=== PATIENT | male | born 1960 | race African-American/Black ===

== ENCOUNTER 2018-10-01 10:03 | Inpatient (IN) | payer MEDICAID ==
[~2018-10-01] VITALS: Ht 177.8 cm; Wt 149.7 kg
[2018-10-01 13:10] LABS: BASOPHILS % 0.3 % (0.0-2.0); EOSINOPHILS % 1.6 % (0.0-5.0); HEMATOCRIT. 41.8 % (42.0-52.0); HEMOGLOBIN. 13.3 g/dL (14.0-18.0); MEAN CORPUSCULAR HEMOGLOBIN 26.2 pg (28.0-32.0); MEAN CORPUSCULAR VOLUME 82.1 fL (80.0-94.0); MEAN PLATELET VOLUME 9.3 fl (7.4-10.4); MONOCYTES % 8.3 % (2.0-8.0); NEUTROPHILS % 67.8 % (40.0-76.0); PLATELET 331 x1000/uL (130-400); RED BLOOD CELL COUNT 5.09 mill/uL (4.7-6.1)
[2018-10-01 13:12] LABS: CHLORIDE 106 mEq/L (98-107)
[2018-10-01] MEDS ORDERED: FUROSEMIDE 40MG/4ML VIAL IVP ONE (14:00)
[2018-10-01] MEDS ORDERED: DEXTROSE 50% WATER 50ML SYRINGE IV PRN (15:30)
[2018-10-01] MEDS: BLOOD SUGAR DIAGNOSTIC STRIP TEST SCH ×2 (15:54→21:22)
[2018-10-01] MEDS ORDERED: CEFTRIAXONE 1 G PREMIX 50 ML IV SCH (16:00)
[2018-10-01] MEDS ORDERED: FUROSEMIDE 40MG/4ML VIAL IVP SCH (17:00)
[2018-10-01] MEDS ORDERED: ACETAMINOPHEN 325MG TABLET PO PRN (18:00)
[2018-10-01] MEDS ORDERED: ONDANSETRON HCL 4MG/2ML INJ IV PRN (18:00)
[2018-10-01 20:00] VITALS: BP 155/84
[2018-10-01] MEDS ORDERED: METF-416 PO (21:08)
[2018-10-01] MEDS ORDERED: FURO20TA4 PO (21:08)
[2018-10-01] MEDS ORDERED: CLOP75TA4 PO (21:09)
[2018-10-01] MEDS ORDERED: METR500T PO (21:11)
[2018-10-01] MEDS ORDERED: BENA20TA77 PO (21:14)
[2018-10-01] MEDS ORDERED: AMLO10TA80 PO (21:15)
[2018-10-01] MEDS ORDERED: HYDR-4134 PO (21:16)
[2018-10-01] MEDS ORDERED: SITA100T11 PO (21:18)
[2018-10-01] MEDS: ATORVASTATIN CALCIUM 40MG TABLET PO SCH (21:30)
[2018-10-01] MEDS: ENOXAPARIN 40MG/0.4ML SYR SUBCUT SCH (21:31)
[2018-10-01] MEDS: INSULIN LISPRO 100 UNITS/ML SUBCUT SCH (21:32)
[2018-10-01] MEDS: INSULIN GLARGINE UD 100 UNITS/ML SYR SUBCUT SCH (21:33)
[2018-10-01 22:14] VITALS: BP 155/84
[2018-10-02] VITALS: BP 120/62
[2018-10-02 04:00] VITALS: BP 140/83
[2018-10-02] MEDS: BLOOD SUGAR DIAGNOSTIC STRIP TEST SCH ×4 (06:03→21:00)
[2018-10-02] MEDS: FUROSEMIDE 40MG/4ML VIAL IVP SCH ×2 (06:16→17:46)
[2018-10-02 06:31] LABS: BASOPHILS % 0.3 % (0.0-2.0); EOSINOPHILS % 0.6 % (0.0-5.0); HEMATOCRIT. 38.9 % (42.0-52.0); HEMOGLOBIN. 12.5 g/dL (14.0-18.0); LYMPHOCYTES % 18.4 % (20.0-50.0); MEAN CORPUSCULAR VOLUME 80.8 fL (80.0-94.0); MEAN PLATELET VOLUME 9.2 fl (7.4-10.4); MONOCYTES % 9.3 % (2.0-8.0); NEUTROPHILS % 71.4 % (40.0-76.0); PLATELET 302 x1000/uL (130-400); RED BLOOD CELL COUNT 4.81 mill/uL (4.7-6.1)
[2018-10-02 06:37] LABS: CHLORIDE 104 mEq/L (98-107)
[2018-10-02] MEDS: INSULIN LISPRO 100 UNITS/ML SUBCUT SCH ×4 (06:41→21:07)
[2018-10-02 07:50] VITALS: BP 116/61
[2018-10-02] MEDS ORDERED: PNEUMOCOCCAL 23-VAL P-SAC VAC 0.5 ML IM ONE (08:00)
[2018-10-02 08:03] LABS: CLARITY URINE CLEAR (CLEAR); COLOR URINE YELLOW (YELLOW); KETONES URINE NEGATIVE (NEGATIVE); LEUKOCYTE ESTERASE URINE 1+ (NEGATIVE); NITRITE URINE NEGATIVE (NEGATIVE); OCCULT BLOOD URINE NEGATIVE (NEGATIVE); PROTEIN URINE NEGATIVE (NEGATIVE); SPECIFIC GRAVITY URINE 1.019 (1.005-1.030); UROBILINOGEN URINE 0.2 E.U./dL (0.2-1.0)
[2018-10-02] MEDS ORDERED: ASPIRIN 81MG TABLET PO SCH (09:00)
[2018-10-02] MEDS: ENOXAPARIN 40MG/0.4ML SYR SUBCUT SCH ×2 (10:15→21:05)
[2018-10-02] MEDS: INSULIN GLARGINE UD 100 UNITS/ML SYR SUBCUT SCH ×2 (10:16→23:24)
[2018-10-02 12:00] VITALS: BP 135/88
[2018-10-02] MEDS ORDERED: CLONIDINE 0.1MG TABLET PO PRN (13:45)
[2018-10-02] MEDS ORDERED: CEFTRIAXONE 1 G PREMIX 50 ML IV SCH (14:00)
[2018-10-02] MEDS ORDERED: AMLODIPINE 2.5MG TABLET PO SCH (14:00)
[2018-10-02] MEDS ORDERED: REGADENOSON 0.4 MG/5 ML IV ONE (14:15)
[2018-10-02 14:36] LABS: *AMPHETAMINES SCREEN URINE NEGATIVE (NEGATIVE)
[2018-10-02 14:37] LABS: *BENZODIAZEPINES SCREEN URINE NEGATIVE (NEGATIVE); CANNABINOID URINE SCREEN NEGATIVE (NEGATIVE); METHADONE URINE SCREEN NEGATIVE (NEGATIVE); OPIATES URINE SCREEN NEGATIVE (NEGATIVE); PHENCYCLIDINE URINE SCREEN NEGATIVE (NEGATIVE)
[2018-10-02 14:40] LABS: *BARBITURATES SCREEN URINE NEGATIVE (NEGATIVE); *COCAINE SCREEN URINE NEGATIVE (NEGATIVE)
[2018-10-02] MEDS: HYDRALAZINE HCL 25MG TABLET PO SCH ×2 (14:59→21:05)
[2018-10-02] MEDS: CLOPIDOGREL 75MG TABLET PO SCH (14:59)
[2018-10-02 16:00] VITALS: BP 130/80
[2018-10-02 20:00] VITALS: BP 146/80
[2018-10-02] MEDS: ATORVASTATIN CALCIUM 40MG TABLET PO SCH (21:04)
[2018-10-02] MEDS: ASPIRIN 81MG TABLET PO SCH (21:04)
[2018-10-02] MEDS: AMLODIPINE 5MG TABLET PO SCH (21:05)
[2018-10-03] VITALS: BP 145/81
[2018-10-03 04:00] VITALS: BP 159/59
[2018-10-03] MEDS: BLOOD SUGAR DIAGNOSTIC STRIP TEST SCH ×3 (06:29→17:38)
[2018-10-03] MEDS: INSULIN LISPRO 100 UNITS/ML SUBCUT SCH ×3 (06:29→18:00)
[2018-10-03] MEDS: FUROSEMIDE 40MG/4ML VIAL IVP SCH ×2 (06:35→17:15)
[2018-10-03] MEDS: HYDRALAZINE HCL 25MG TABLET PO SCH ×2 (06:35→14:53)
[2018-10-03 07:40] LABS: BASOPHILS % 0.4 % (0.0-2.0); EOSINOPHILS % 1.2 % (0.0-5.0); HEMATOCRIT. 39.4 % (42.0-52.0); HEMOGLOBIN. 12.5 g/dL (14.0-18.0); LYMPHOCYTES % 18.4 % (20.0-50.0); MEAN CORPUSCULAR VOLUME 81.6 fL (80.0-94.0); MEAN PLATELET VOLUME 9.6 fl (7.4-10.4); MONOCYTES % 6.4 % (2.0-8.0); NEUTROPHILS % 73.6 % (40.0-76.0); PLATELET 267 x1000/uL (130-400); RED BLOOD CELL COUNT 4.83 mill/uL (4.7-6.1); RED CELL DISTRIBUTION WIDTH 15.5 % (11.6-14.6)
[2018-10-03 08:30] VITALS: BP 156/96
[2018-10-03] MEDS ORDERED: REGADENOSON 0.4 MG/5 ML IV ONE (09:16)
[2018-10-03 09:59] LABS: CHLORIDE 101 mEq/L (98-107)
[2018-10-03 10:10] LABS: LDL CHOLESTEROL 105 mg/dL (5-100)
[2018-10-03 10:11] LABS: CREATINE KINASE 173 IU/L (39-308); CREATINE KINASE MB FRACTION < 1.0 ng/mL (0.5-3.6)
[2018-10-03 10:14] LABS: HDL CHOLESTEROL 41 mg/dL (40-59)
[2018-10-03] MEDS: INSULIN GLARGINE UD 100 UNITS/ML SYR SUBCUT SCH (11:44)
[2018-10-03] MEDS: ENOXAPARIN 40MG/0.4ML SYR SUBCUT SCH (11:45)
[2018-10-03] MEDS: CLOPIDOGREL 75MG TABLET PO SCH (11:45)
[2018-10-03] MEDS: AMLODIPINE 5MG TABLET PO SCH (11:46)
[2018-10-03] MEDS: ASPIRIN 81MG TABLET PO SCH (11:46)
[2018-10-03 12:00] VITALS: BP 141/87
[2018-10-03] MEDS ORDERED: LOSARTAN POTASSIUM 25 MG TABLET PO SCH (12:00)
[2018-10-03] MEDS ORDERED: HYDR-4134 PO (14:44)
[2018-10-03] MEDS ORDERED: ASPI-1160 PO (14:44)
[2018-10-03] MEDS ORDERED: LOSA25TA3 PO (14:44)
[2018-10-03] MEDS ORDERED: AMLO5TAB88 PO (14:44)
[2018-10-03] MEDS ORDERED: LIP40 PO (14:44)
[2018-10-03 16:00] VITALS: BP 142/80
[2018-10-03] MEDS ORDERED: CEFTRIAXONE 1 G PREMIX 50 ML IV SCH (16:00)
[2018-10-03 18:16] VITALS: BP 142/80
== END 2018-10-03 21:03 | disposition home or self-care (01) | DRG 861 ==
LOC: ER 11:25 → 5WST 14:21 → EDBEDREQ 14:23 → ENRESERV 17:18
PROVIDERS: ADMIT Internal Medicine; ATTEND Internal Medicine
DX: R60.0 Localized edema (principal); I11.0 Hypertensive heart disease with heart failure; E66.01 Morbid (severe) obesity due to excess calories; I50.40 Unspecified combined systolic (congestive) and diastolic (congestive) heart failure; E11.9 Type 2 diabetes mellitus without complications; E78.5 Hyperlipidemia, unspecified; D72.829 Elevated white blood cell count, unspecified; F17.210 Nicotine dependence, cigarettes, uncomplicated; I25.10 Atherosclerotic heart disease of native coronary artery without angina pectoris; Z95.5 Presence of coronary angioplasty implant and graft; Z91.19 Patient's noncompliance with other medical treatment and regimen; Z79.4 Long term (current) use of insulin; Z71.3 Dietary counseling and surveillance; Z79.84 Long term (current) use of oral hypoglycemic drugs; Z79.899 Other long term (current) drug therapy; I25.2 Old myocardial infarction; Z71.6 Tobacco abuse counseling; Z68.42 Body mass index [BMI] 45.0-49.9, adult
CPT/HCPCS: 36415; 71045; 78452; 80048; 80061; 80305; 81003; 82550; 82553; 82962; 83735; 83880; 84145; 84443; 84484; 85379; 90732; 93005; 93017; 93306; 93970; 96365; 96375; 99285; A9500; J0696; J1650; J1815; J1940; J2785; J7040

== ENCOUNTER 2019-07-01 10:45 | Inpatient (IN) | payer MEDICAID ==
[~2019-07-01] VITALS: Ht 180.3 cm; Wt 140.6 kg
[~2019-07-01 10:45] MED LIST: AMLO5TAB88 PO; ASPI-1160 PO; CLOP75TA4 PO; FURO20TA4 PO; HYDR-4134 PO; LIP40 PO; LOSA25TA3 PO; METF-416 PO; SITA100T11 PO
[2019-07-01 12:21] LABS: BASOPHILS % 0.9 % (0.0-2.0); EOSINOPHILS % 3.2 % (0.0-5.0); HEMATOCRIT. 38.8 % (42.0-52.0); HEMOGLOBIN. 12.4 g/dL (14.0-18.0); LYMPHOCYTES % 27.5 % (20.0-50.0); MEAN CORPUSCULAR HEMOGLOBIN 26.1 pg (28.0-32.0); MEAN CORPUSCULAR VOLUME 82.1 fL (80.0-94.0); MEAN PLATELET VOLUME 9.2 fl (7.4-10.4); MONOCYTES % 5.9 % (2.0-8.0); NEUTROPHILS % 62.5 % (40.0-76.0); PLATELET 306 x1000/uL (130-400); RED BLOOD CELL COUNT 4.73 mill/uL (4.7-6.1); RED CELL DISTRIBUTION WIDTH 15.1 % (11.6-14.6)
[2019-07-01 12:30] LABS: CHLORIDE 105 mEq/L (98-107)
[2019-07-01 12:32] LABS: PROTHROMBIN TIME 10.6 sec (9.6-11.0)
[2019-07-01] MEDS ORDERED: NITROGLYCERIN OINT 1GM/INCH UDPKT TD ONE (13:00)
[2019-07-01] MEDS ORDERED: FUROSEMIDE 20MG/2ML VIAL IVP ONE (13:00)
[2019-07-01] MEDS ORDERED: ASPIRIN 325MG EC TABLET PO ONE (13:00)
[2019-07-01] MEDS ORDERED: ENOXAPARIN 40MG/0.4ML SYR SUBCUT SCH (14:00)
[2019-07-01] MEDS ORDERED: IPRATROPIUM/ALBUTEROL 0.5-3(2.5)MG/3ML NEB HHN PRN (14:00)
[2019-07-01] MEDS ORDERED: MORPHINE SULFATE 2 MG/ML CPJ (NOT FOR IM USE) IV PRN (14:00)
[2019-07-01] MEDS ORDERED: ONDANSETRON HCL 4MG/2ML INJ IV PRN (14:00)
[2019-07-01] MEDS ORDERED: ACETAMINOPHEN 325MG TABLET PO PRN (14:00)
[2019-07-01] MEDS ORDERED: DIPHENHYDRAMINE 50MG/ML VIAL IV PRN (14:00)
[2019-07-01] MEDS ORDERED: CLONIDINE 0.1MG TABLET PO PRN (14:00)
[2019-07-01] MEDS: ENOXAPARIN 40MG/0.4ML SYR SUBCUT SCH (18:00)
[2019-07-01 20:59] LABS: PHOSPHORUS 3.5 mg/dL (2.5-4.9)
[2019-07-01 23:49] LABS: CREATINE KINASE MB FRACTION 1.3 ng/mL (0.5-3.6)
[2019-07-02 04:42] LABS: BASOPHILS % 0.7 % (0.0-2.0); HEMATOCRIT. 38.9 % (42.0-52.0); HEMOGLOBIN. 12.5 g/dL (14.0-18.0); LYMPHOCYTES % 34.9 % (20.0-50.0); MEAN CORPUSCULAR HEMOGLOBIN 26.4 pg (28.0-32.0); MEAN CORPUSCULAR VOLUME 81.9 fL (80.0-94.0); MEAN PLATELET VOLUME 8.9 fl (7.4-10.4); MONOCYTES % 7.3 % (2.0-8.0); NEUTROPHILS % 53.1 % (40.0-76.0); PLATELET 305 x1000/uL (130-400); RED BLOOD CELL COUNT 4.75 mill/uL (4.7-6.1); RED CELL DISTRIBUTION WIDTH 15.2 % (11.6-14.6)
[2019-07-02 06:19] LABS: CHLORIDE 107 mEq/L (98-107)
[2019-07-02] MEDS ORDERED: DEXTROSE 50% WATER 50ML SYRINGE IV PRN (06:30)
[2019-07-02] MEDS: ENOXAPARIN 40MG/0.4ML SYR SUBCUT SCH (07:00)
[2019-07-02] MEDS: BLOOD SUGAR DIAGNOSTIC STRIP TEST SCH ×4 (08:55→21:00)
[2019-07-02] MEDS: INSULIN LISPRO (HIGH DOSE) 100 UNITS/ML SUBCUT SCH ×4 (09:04→21:00)
[2019-07-02] MEDS: AMLODIPINE 2.5MG TABLET PO SCH (10:30)
[2019-07-02] MEDS: NITROGLYCERIN OINT 1GM/INCH UDPKT TD SCH ×2 (14:14→22:08)
[2019-07-02 15:49] VITALS: BP 135/73
[2019-07-02 15:52] VITALS: BP 135/73
[2019-07-02 16:52] VITALS: BP 138/84
[2019-07-02 20:00] VITALS: BP 139/74
[2019-07-02] MEDS ORDERED: ENOXAPARIN 120MG/0.8ML SYR SUBCUT NR (21:00)
[2019-07-02 22:00] VITALS: BP 152/94
[2019-07-02] MEDS: ATORVASTATIN CALCIUM 10MG TABLET PO SCH (22:07)
[2019-07-03] VITALS (19 sets, daily range): BP systolic 115–151; BP diastolic 58–93
[2019-07-03] MEDS: NITROGLYCERIN OINT 1GM/INCH UDPKT TD SCH ×3 (05:15→21:07)
[2019-07-03] MEDS: BLOOD SUGAR DIAGNOSTIC STRIP TEST SCH ×4 (05:16→21:03)
[2019-07-03 07:05] LABS: BASOPHILS % 0.5 % (0.0-2.0); EOSINOPHILS % 4.2 % (0.0-5.0); HEMATOCRIT. 35.1 % (42.0-52.0); HEMOGLOBIN. 11.3 g/dL (14.0-18.0); LYMPHOCYTES % 33.5 % (20.0-50.0); MEAN CORPUSCULAR HEMOGLOBIN 26.3 pg (28.0-32.0); MEAN PLATELET VOLUME 9.3 fl (7.4-10.4); MONOCYTES % 7.2 % (2.0-8.0); NEUTROPHILS % 54.6 % (40.0-76.0); PLATELET 313 x1000/uL (130-400); RED BLOOD CELL COUNT 4.28 mill/uL (4.7-6.1); RED CELL DISTRIBUTION WIDTH 14.9 % (11.6-14.6)
[2019-07-03] MEDS: INSULIN LISPRO (HIGH DOSE) 100 UNITS/ML SUBCUT SCH ×4 (07:20→21:07)
[2019-07-03 07:45] LABS: CHLORIDE 105 mEq/L (98-107)
[2019-07-03 07:49] LABS: PHOSPHORUS 4.3 mg/dL (2.5-4.9)
[2019-07-03] MEDS ORDERED: ASPIRIN 81MG EC TABLET PO SCH (09:00)
[2019-07-03] MEDS: AMLODIPINE 2.5MG TABLET PO SCH (09:24)
[2019-07-03] MEDS ORDERED: SODIUM CHLORIDE 0.45% 1,000 ML IV ONE (11:00)
[2019-07-03] MEDS ORDERED: HEPARIN SODIUM 1,000 UNIT/1ML VIAL IV ONE (11:25)
[2019-07-03] MEDS ORDERED: LIDOCAINE HCL 1% 20ML VIAL (Pyxis) INJ ONE (14:30)
[2019-07-03] MEDS ORDERED: IOHEXOL-300 100 ML BOTTLE ONE ×2 (14:31→15:39)
[2019-07-03] MEDS ORDERED: FENTANYL CITRATE/PF 50MCG/ML 2ML VIAL ONE (15:16)
[2019-07-03] MEDS ORDERED: MIDAZOLAM HCL 2 MG/2 ML VIAL ONE (15:16)
[2019-07-03] MEDS ORDERED: IODIXANOL 320MG/ML 100 ML BOTTLE IV ONE (15:49)
[2019-07-03] MEDS ORDERED: CLOPIDOGREL 75MG TABLET ONE (16:06)
[2019-07-03] MEDS ORDERED: ACETAMINOPHEN 325MG TABLET PO PRN (16:15)
[2019-07-03] MEDS ORDERED: ATROPINE SULFATE 1MG/10ML SYR IV PRN (16:15)
[2019-07-03] MEDS ORDERED: ONDANSETRON HCL 4MG/2ML INJ IV PRN (16:15)
[2019-07-03] MEDS: ATORVASTATIN CALCIUM 10MG TABLET PO SCH (21:07)
[2019-07-04] VITALS (8 sets, daily range): BP systolic 124–146; BP diastolic 73–101
[2019-07-04] MEDS: NITROGLYCERIN OINT 1GM/INCH UDPKT TD SCH ×2 (05:29→13:00)
[2019-07-04] MEDS: BLOOD SUGAR DIAGNOSTIC STRIP TEST SCH ×2 (05:29→11:50)
[2019-07-04] MEDS: INSULIN LISPRO (HIGH DOSE) 100 UNITS/ML SUBCUT SCH ×2 (05:33→12:55)
[2019-07-04 06:22] LABS: CHLORIDE 105 mEq/L (98-107)
[2019-07-04 06:34] LABS: BASOPHILS % 0.4 % (0.0-2.0); EOSINOPHILS % 3.1 % (0.0-5.0); HEMATOCRIT. 36.5 % (42.0-52.0); HEMOGLOBIN. 11.8 g/dL (14.0-18.0); LYMPHOCYTES % 32.3 % (20.0-50.0); MEAN CORPUSCULAR HEMOGLOBIN 26.4 pg (28.0-32.0); MEAN CORPUSCULAR VOLUME 81.9 fL (80.0-94.0); MEAN PLATELET VOLUME 8.9 fl (7.4-10.4); NEUTROPHILS % 56.2 % (40.0-76.0); PLATELET 332 x1000/uL (130-400); RED BLOOD CELL COUNT 4.46 mill/uL (4.7-6.1)
[2019-07-04] MEDS: AMLODIPINE 2.5MG TABLET PO SCH (08:56)
[2019-07-04] MEDS ORDERED: CLOPIDOGREL 75MG TABLET PO SCH (09:00)
[2019-07-04] MEDS ORDERED: ASPIRIN 325MG TABLET PO SCH (09:00)
[2019-07-04] MEDS ORDERED: ASPI-986 PO (11:02)
[2019-07-04] MEDS ORDERED: AMLO2.5T45 PO (11:02)
== END 2019-07-04 15:05 | disposition home or self-care (01) | DRG 174 ==
LOC: ER 10:45 → EDBEDREQ 13:28 → ENRESERV 07-02 11:41 → 3WST 07-02 13:22
PROVIDERS: ADMIT Internal Medicine; ATTEND Internal Medicine
PROC: B2111ZZ Fluoroscopy of Multiple Coronary Arteries using Low Osmolar Contrast (ICD-10-PCS; principal; 2019-07-03)
PROC: 4A023N7 Measurement of Cardiac Sampling and Pressure, Left Heart, Percutaneous Approach (ICD-10-PCS; 2019-07-03)
PROC: 027134Z Dilation of Coronary Artery, Two Arteries with Drug-eluting Intraluminal Device, Percutaneous Approach (ICD-10-PCS; 2019-07-03)
DX: I21.4 Non-ST elevation (NSTEMI) myocardial infarction (principal); J96.00 Acute respiratory failure, unspecified whether with hypoxia or hypercapnia; I50.23 Acute on chronic systolic (congestive) heart failure; Z68.42 Body mass index [BMI] 45.0-49.9, adult; I42.0 Dilated cardiomyopathy; E11.65 Type 2 diabetes mellitus with hyperglycemia; I11.0 Hypertensive heart disease with heart failure; I25.110 Atherosclerotic heart disease of native coronary artery with unstable angina pectoris; E78.5 Hyperlipidemia, unspecified; G47.33 Obstructive sleep apnea (adult) (pediatric); E66.9 Obesity, unspecified; F17.210 Nicotine dependence, cigarettes, uncomplicated; I24.9 Acute ischemic heart disease, unspecified; J44.9 Chronic obstructive pulmonary disease, unspecified; Z95.5 Presence of coronary angioplasty implant and graft; Z79.82 Long term (current) use of aspirin; Z79.84 Long term (current) use of oral hypoglycemic drugs; Z79.899 Other long term (current) drug therapy; Z71.6 Tobacco abuse counseling; Z82.3 Family history of stroke; Z82.49 Family history of ischemic heart disease and other diseases of the circulatory system
CPT/HCPCS: 36415; 71045; 80048; 80053; 80061; 82550; 82553; 82962; 83036; 83735; 83880; 84100; 84443; 84484; 85025; 85347; 92928; 93005; 93306; 93458; 93970; 99291; C1760; C1769; C1874; C1887; C1893; J1644; J1650; J1815; J1940; J2250; J3010; J3490; Q9967